=== PATIENT | female | born 1970 | race Caucasian/White ===

== ENCOUNTER 2025-01-22 10:04 | Outpatient (CLI) | payer OTHER, SELFPAY ==
--- NOTE | ~2025-01-22 | MM_ITS ---
EXAMINATION: MM screening skylar BI w renee HISTORY: Screening TECHNIQUE: Craniocaudal and mediolateral oblique 3-D tomosynthesis images were obtained and synthetic 2-D images were generated. CAD analysis was submitted and interpreted. COMPARISON: No prior mammogram is available for comparison at this institution. BREAST PARENCHYMAL COMPOSITION: The breasts are heterogeneously dense, which may obscure small masses. FINDINGS: Focal asymmetry with architectural distortion in the upper inner quadrant of the right breast, middle to posterior depth with a few indeterminant calcifications. Asymmetry in the upper left breast, posterior depth, seen in the left MLO projection. In addition, there is a focal asymmetry in the lower inner quadrant of the left breast, posterior depth. IMPRESSION: 1. Focal asymmetry with architectural distortion in the upper inner quadrant of the right breast, middle to posterior depth with a few indeterminant calcifications. The study is incomplete. A diagnostic mammogram and a diagnostic ultrasound are recommended. 2. Asymmetry in the upper left breast, posterior depth, seen in the left MLO projection. In addition, there is a focal asymmetry in the lower inner quadrant of the left breast, posterior depth. The study is incomplete. A diagnostic mammogram and a diagnostic ultrasound are recommended. BI-RADS 0: Incomplete-Need additional imaging evaluation. Reviewed, dictated and finalized at location Q. IMPRESSION: 1. Focal asymmetry with architectural distortion in the upper inner quadrant of the right breast, middle to posterior depth with a few indeterminant calcifica tions. The study is incomplete. A diagnostic mammogram and a diagnostic ultraso und are recommended. 2. Asymmetry in the upper left breast, posterior depth, seen in the left MLO pr ojection. In addition, there is a focal asymmetry in the lower inner quadrant o f the left breast, posterior depth. The study is incomplete. A diagnostic mammo gram and a diagnostic ultrasound are recommended. BI-RADS 0: Incomplete-Need additional imaging evaluation.
== END 2025-01-22 10:05 | disposition home or self-care (01) ==
LOC: ANHFOHIMG 10:08
PROVIDERS: PCP Nurse Practitioner Family; Visit Provider Nurse Practitioner Family
DX: Z12.31 Encounter for screening mammogram for malignant neoplasm of breast (principal); R92.8 Other abnormal and inconclusive findings on diagnostic imaging of breast
CPT/HCPCS: 77063; 77067

== ENCOUNTER 2025-04-07 02:32 | Day surgery (SDC) | payer OTHER, SELFPAY ==
[2025-04-06 09:43] VITALS: BMI 25.4
--- NOTE | 2025-04-06 10:26 | PC.NURSE ---
[facility] has started construction of its new state of the art ER which will open Spring 2026. With this, we anticipate parking may be a challenge for some our surgical patients and families. Parking spaces are limited but are available for all Surgical, obstetrics, and ER patients sharing this lot. If you arrive and find you are having a hard time finding a parking space, please note that we understand the challenges, please drive around the hospital and park near Hospital Entrance 1. When you enter this entrance, you can ask a volunteer to direct or take you back to the surgical waiting area to check in. We appreciate everyone?s understanding of these expected challenges while we build for your future. Report to the Outpatient Waiting Room, entrance under the green pavilion located off [address], at time __10:30AM____ on date ___04/07/25____. Planned Procedure Time: ____12:30PM____.? Time changes happen often and if your time is changed the preop area will call you the afternoon before. - You and your visitor will be asked to self-screen and do not enter if you have any COVID symptoms. Please call surgeon if you need to reschedule. - A mask is optional within the hospital at this time. Patients may have clear liquids (water, carbonated beverages, clear teas, apple juice) until 3 hours prior to surgery (9:30AM) with a maximum of 20 ounces. - No food from midnight until time of surgery and no smoking, or chewing tobacco (or any form of nicotine). No chewing gum, candy or mints. Take only the following medications with a SIP of water on the morning of surgery: NONE DO NOT STOP ANY OF YOUR OTHER PRESCRIPTION MEDICATIONS PRIOR TO SURGERY EXCEPT THE FOLLOWING Hold all vitamins and supplements for 3 days per anesthesiologist--.STARTING NOW. Please no make-up, nail yakut, hairspray, perfume, deodorant, or body powder the day of surgery.? No jewelry (including any body piercings) or valuables the day of surgery, leave them at home.? Please take a shower or bath the night before, or the morning of, surgery with an antibacterial soap.? Wear comfortable, loose fitting clothing.? Children are encouraged to wear pajamas. - Jewelry must be removed prior to entering the operating room.? Rings and piercings that are not removed may be cut off. - The hospital will not accept responsibility for valuables.? - Please leave all valuables, including medications, at home the day of surgery. If you are going home after surgery, a licensed freight delivery driver must drive you home.? - NO public transportation without another adult if you receive anesthesia. - We recommend that an adult stay with you for 24 hours following discharge. - We also recommend that you do not drive, make important decision, drink alcoholic beverages, or take any drugs that were not prescribed by your health care provider for at least 24 hours after your discharge time. For Pediatric surgeries, we recommend two adults accompany the child home. Follow any additional instructions given to you from your surgeon. Telephone instructions given to PATIENT and asked if any additional questions and then verbalized understanding. Patient advised to call surgeon office or pre surgery nurse liaison [phone] if any additional questions.
--- OUTSIDE RECORDS SUMMARY | 2025-04-07 02:41 | XMS_ITS | Clinical Summary ---
Author Organization [facility] Address [address] [place] [address] Care Team Providers Care Scheduling Analyst Name Role Phone Delfino De Anda MD Primary Care Provider [phone] Allergies No known active allergies Medications No known medications Immunizations Immunization Administration Dates Next Due Influenza (Generic) 02/16/2014,04/07/2013,2011 Influenza Adult (Generic) 04/03/2022 Tdap (Boostrix) 08/17/2023 Social History Tobacco Use Types Packs/Day Years Used Date Smoking Tobacco: Former Cigarettes Smokeless Tobacco: Never Tobacco Cessation:Counseling Given: Yes Alcohol Use Standard Drinks/Week Comments Yes 0 (1 standard drink = 0.6 oz pur e alcohol) socially PHQ-2 Answer Date Recorded Patient Health Questionnaire-2 Score 0 02/01/2024 Comments No Sex and Gender Information Value Date Recorded Sex Assigned at Not on file Legal Sex Female 12:13 PM [employer] Gender Identity Not on file Sexual Orientation Not on file Last Filed Vital Signs Vital Sign Reading Time Taken Comments Blood Pressure 114/81 02/01/2024 9:19 AM CDT Pulse 101 02/01/2024 9:19 AM CDT Temperature 37.7 C (99.8 F) 02/01/2024 9:19 AM CDT Respiratory Rate 16 02/01/2024 9:19 AM CDT Oxygen Saturation 97% 02/01/2024 9:19 AM CDT Inhaled Oxygen Concentration - - Weight 64.4 kg (142 lb) 02/01/2024 9:19 AM CDT Height 154.9 cm (5' 1) 02/01/2024 9:19 AM CDT Body Mass Index 26.83 02/01/2024 9:19 AM CDT Plan of Treatment Health Maintenance Due Date Last Done Comments Cervical Cancer Screening Pap Smear (Age 30 to 64) Every 3 Years 1970 Colorectal Cancer Screening Colonoscopy (10 Years) 1970 Annual Physical 08/18/1974 Hepatitis C 08/18/1989 Hepatitis B Vaccines (1 of 3 - 19+ 3-dose series) 08/18/1990 Cervical Cancer Screening Pap with HPV Testing (Age 30 to 64) Every 5 Years 08/18/2001 Cervical Cancer Screening with HPV 08/18/2001 Mammogram Screening 12/07/2018 12/07/2016, 12/02/2015, 12/02/2015, Additional history exists Pneumococcal Vaccine: 50+ Years (1 of 1 - PCV) 08/18/2021 Zoster Vaccines (1 of 2) 08/18/2021 PHQ-2 (Physician [place]) 04/30/2024 02/01/2024 COVID-19 Vaccine ( - season) 2024 12/09/2020, 11/18/2020 Influenza Adult (#1) 2025 04/03/2022, 02/16/2014, 04/07/2013, Additional history exists DTaP, Tdap and Td Vaccines (2 - Td or Tdap) 08/16/2033 08/17/2023 Hepatitis A Vaccines Aged Out No long er eligible based on patient's age to complete this topic Meningococcal B Vaccine Aged Out No l onger eligible based on patient's age to complete this topic Meningococcal Vaccine Aged Out No julia jonny eligible based on patient's age to complete this topic RSV Immunizations Under 20 Months Aged Out No longer eligible based on patient's age to complete this topic Care Teams Scheduling Analyst Relationship Specialty Start Date End Date Delfino De Anda MD [address] [place] [id number] PCP - General FAMILY PRACTICE 08/17/23
[2025-04-07 10:15] VITALS: BP 130/90; PULSE 66; TEMP 36.2; O2SAT 100; BMI 25.0
[2025-04-07] MEDS: LACTATED RINGERS 1,000 ML 30 ML IV CONT (11:10)
[2025-04-07] MEDS: ACETAMINOPHEN 500 MG TABLET 1000 MG PO (11:14)
[2025-04-07 11:19] LABS: BEDSIDEPREGUCG Negative (Negative)
--- NOTE | 2025-04-07 11:51 | WPDANESEPPF ---
Anes - Initial Pre Proc Eval Procedure: Operation Date: 04/07/25 12:30 Proposed Procedures p Loop Electrical Excision Procedure - Asif Pagan MD Date/Time: 04/07/25 11:51 Surgeon: Asif Pagan MD Pre Op Diagnosis: cin3 Patient Data Age: 54 Gender: F Height: 1.57 m Weight: 62.2 kg Last Vital Signs Temp 36.2 C L 04/07/25 10:15 Pulse 66 04/07/25 10:15 BP 130/90 04/07/25 10:15 Pulse Ox 100 04/07/25 10:15 O2 Del Method Room Air 04/07/25 10:15 Allergies Allergy/AdvReac Type Severity Reaction Status Date / Time No Known Allergies Allergy Unknown Verified 04/07/25 10:48 Home Medications ?Medication ?Instructions ?Recorded ?Confirmed ?Type multivitamin 1 tablet PO DAILY 03/07/23 04/06/25 History acetaminophen 500 mg tablet 500 mg PO Q6H PRN pain 04/06/25 04/06/25 History ibuprofen 200 mg tablet 200 mg PO Q6H PRN pain 04/06/25 04/06/25 History Laboratory Tests 04/07/25 10:15 POC Urine HCG, Qual Negative (Negative) Patient hx anesthesia problems: none Family hx anesthesia problems: none Results Review: All pre-operative results and documents have been reviewed as part of the pre-operative evaluation. [facility] Past Medical History Medical History Miscarriage D&C Breast cancer size of pencil eraser removed Surgical History Surgical History History of lumpectomy Hollister teeth removed Family History Family History Mother Patient's mother is in good health Family history of allergic disorder COPD (chronic obstructive pulmonary disease) Hypertension Thyroid disorder Father Patient's father is in good health Sibling Patient's brother is in good health Family history of allergic disorder Family history of kidney stones Social History Social History Smoking status: Never smoker Alcohol intake: current Drinks per week: 2 Substance use: never Substance use type: does not use Living arrangements: alone Occupation/Education: occupation Gender identity (if verbalized by the patient): Female Agree to blood products: Yes Anes - Eval Final PreProcedure Day of Procedure 04/07/25 11:51 Patient weight: overweight Heart: regular rate and rhythm Lungs: clear to auscultation Airway: Mallampati scale class II Neurological: alert and oriented Last oral intake: >/= 8 hours ASA classification: II Emergent: no Anesthetic plan: proceed Anesthesia type and monitoring: general GIVS and standard monitoring Results Review: All pre-operative results and documents have been reviewed as part of the pre-operative evaluation. Informed Consent: The patient's anesthetic plan and its attendant risks and benefits were discussed with the patient/family/POA. Questions were solicited and answers provided to the satisfaction of the patient/family/POA.
--- NOTE | 2025-04-07 12:40 | PM.IMHP2 ---
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 Colposcopy showed high grade cervical dysplasia. Review of Systems Review of Systems: All systems reviewed & are unremarkable except as noted in HPI and below PMFSH Past Medical History Medical History Miscarriage D&C Breast cancer size of pencil eraser removed Surgical History Surgical History History of lumpectomy Dutton teeth removed Family History Family History Mother Patient's mother is in good health Family history of allergic disorder COPD (chronic obstructive pulmonary disease) Hypertension Thyroid disorder Father Patient's father is in good health Sibling Patient's brother is in good health Family history of allergic disorder Family history of kidney stones Social History Social History Smoking status: Never smoker Alcohol intake: current Drinks per week: 2 Substance use: never Substance use type: does not use Living arrangements: alone Occupation/Education: occupation Gender identity (if verbalized by the patient): Female Agree to blood products: Yes Meds Home Medications and Allergies Home Medications ?Medication ?Instructions ?Recorded ?Confirmed ?Type multivitamin 1 tablet PO DAILY 03/07/23 04/06/25 History acetaminophen 500 mg tablet 500 mg PO Q6H PRN pain 04/06/25 04/06/25 History ibuprofen 200 mg tablet 200 mg PO Q6H PRN pain 04/06/25 04/06/25 History Allergies Allergy/AdvReac Type Severity Reaction Status Date / Time No Known Allergies Allergy Unknown Verified 04/07/25 10:48 Vital Signs Vital Signs - 24 hr 04/07/25 10:15 Temperature 97.2 F L Pulse Rate 66 Blood Pressure 130/90 Pulse Oximetry 100 Oxygen Delivery Room Air Exam Const: Orientation/consciousness: patient oriented x3 Other: Well-developed, well-nourished female in no acute distress. Neck: Thyroid: thyroid normal Lymphatic: no lymphadenopathy noted (in neck, axilla or inguinal nodes) Resp: Effort & Inspection: normal respiratory effort Auscultation: clear to auscultation bilaterally Cardio: Rate: regular rate Rhythm: regular rhythm Heart sounds: S1 normal heart sound present and S2 normal heart sound present GI: Other: ABD: Soft, nontender, nondistended. No guarding or rebound tenderness. No hepatosplenomegaly. : General: Yes no CVA tenderness Other: External genitalia: normal female hair distribution, without lesion. Urethral meatus: no lesion, non prolapsed. Bladder: no mass, nontender Vagina: well-estrogenized, without lesion or discharge. No cystocele or rectocele. Cervix: no lesion or discharge. Uterus: small, anteverted, freely mobile, nontender Adnexa: no mass or tenderness. Anus/perineum: no lesions, nontender Back/Spine/Pelvis: Back: no CVA tenderness Skin: General skin exam: normal color and no rashes or lesions noted Neuro: General: patient oriented x3 Extrem: Other: Extremities: nontender with no edema Psych: Mental Status: mental status grossly normal Affect: normal affect Assessment and Plan Assessment and plan (1) Severe cervical dysplasia, histologically confirmed: Code(s): D06.9 - Carcinoma in situ of cervix, unspecified Status: Acute Assessment and Plan: A: Severe cervical dysplasia. P: I have recommended LEEP conization of the cervix. She understands risks of surgery to include risks of anesthesia, risks of pain, infection, bleeding, blood products, thromboembolic phenomena and damage to adjacent structures such as bowel, bladder, ureters, blood vessels and nerves. She understands all these risks and elects to proceed with surgery.
--- NOTE | 2025-04-07 12:42 | WPDHPUPDATE1 ---
History and Physical Update Update Date/Time: 04/07/25 12:42 History and Physical has been reviewed, including an updated exam of the patient. There are NO changes in the patient's condition. Risks, benefits, and alternatives have been discussed and questions answered. Patient agrees to proceed with procedure.
[2025-04-07] MEDS: LIDOCAINE 1% LOCAL INJ 10 ML VIAL INFILTRATE (13:13)
--- NOTE | 2025-04-07 13:17 | S_PTH ---
PATIENT: Xuan Rodarte LOC: [facility] U#:[id number] AGE/SX: 54/F ROOM: RE04/07/[address]: Asif Pagan MD : 1970 BED: DIS: 04/07/2025 SPEC #: [id number] RECD: 04/07/25 14:29 STATUS: KOKO REQ #: [id number] GREG: 04/07/25 13:[address]: Asif Pagan DEPT: [facility] Surgical RECD BY: Sonia Cortes MLT, (ASCP) ENTERED: 04/07/25 14:30 SP TYPE: Surgical OTHR DR: Shannon Osborne APRN Tissues: A - Leep/Cone B - Leep/Cone C - Leep/Cone Procedures: Hematoxylin and Eosin Stain Gross and Microscopic Level 5 P16
[2025-04-07] MEDS: KETOROLAC 15 MG/ML VIAL (*BKC) IV PUSH (13:22)
[2025-04-07 13:29] VITALS: BP 86/48; PULSE 77; RESP 14; O2SAT 97
--- NOTE | 2025-04-07 13:29 | P.OP_ITS ---
Procedure Note - Detailed Date of Procedure 04/07/25 Pre-op Diagnosis Severe dysplasia of the cervix Post-op Diagnosis Same Procedure Performed LEEP conization of the cervix Surgeon Asif Pagan MD Anesthesia MAC and Local (1% lidocaine) Findings Acetowhite epithelium noted on anterior and posterior lip of the cervix. Description of Procedure The patient was taken to the operating room where she was prepared and draped in the usual sterile fashion in the dorsal lithotomy position. The bladder was drained with a red rubber catheter. A sterile, insulated speculum was placed into the vagina. Ten mL of 1% lidocaine was administered in a paracervical blo ck. Acetic acid was applied to the cervix. LEEP conization was then performed, first biopsying the posterior lip of the cervix, then the anterior lip, then the top of the hat. The rollerball was used to achieve excellent hemostasis. Monsel's solution was then applied to the biopsy bed. Hemostasis was excellent. Sponge, lap, needle and instrument counts were correct. The patient was awakened and taken to the recovery room in stable condition. I was present and scrubbed through the entire procedure. Implants None Estimated Blood Loss 10 Drains No Packing No Pathology Yes (Anterior lip of cervix, posterior lip of cervix, top of the hat) Complications None Condition Stable Disposition PACU [facility] Billing Surgery - Charge Forward: Surgery Billing
[2025-04-07 14:00] VITALS: BP 142/88; PULSE 62; RESP 20
[2025-04-07 14:30] VITALS: BP 128/75; PULSE 78; RESP 20
== END 2025-04-07 14:41 | disposition home or self-care (01) ==
PROVIDERS: Anesthesiology; PCP Nurse Practitioner Family; Visit Provider Obstetrics & Gynecology
PROC: 0UBC7ZZ Excision of Cervix, Via Natural or Artificial Opening (ICD-10-PCS; CPT 57522; principal; 2025-04-07 12:30)
DX: D06.0 Carcinoma in situ of endocervix (principal); Z79.1 Long term (current) use of non-steroidal anti-inflammatories (NSAID); Z98.890 Other specified postprocedural states; Z85.3 Personal history of malignant neoplasm of breast
CPT/HCPCS: 57522; 88305; 88307; 88342; A9270; J1885; J2003; J2250; J2704; J3010; J7120

== ENCOUNTER 2025-04-13 12:58 | Outpatient (CLI) | payer OTHER, SELFPAY ==
--- NOTE | ~2025-04-13 | MMUS_ITS ---
EXAMINATION: MM diagnostic skylar BI w renee, US breast BI limited INDICATION: 54-year old female; BI-RADS 0, callback to evaluate bilateral breast asymmetries. Patient does not remember the location of a prior mammograms. Prior biopsy right breast which was reported to the patient as benign. COMPARISON: 01/22/2025 TECHNIQUE: Digital breast tomosynthesis True lateral and spot compression of BILATERAL breast were obtained. FINDINGS: The breasts are heterogeneously dense, which may obscure small masses. The asymmetry of concern in the superior medial right breast at posterior depth persists on spot compression views and contains a few calcifications. In addition there is a biopsy clip noted adjacent to this area. The asymmetry of concern seen in the superior left breast at posterior depth effaces on spot compression views compatible with superimposition of fibroglandular tissue. The focal asymmetry seen in the inferior medial left breast at posterior depth persisted as a circumscribed mass. Bilateral breast ultrasound was performed for further evaluation. BILATERAL BREAST ULTRASOUND FINDINGS: Right breast: Targeted evaluation of the area of concern in the superior medial right breast revealed an hypoechoic area at 1:00, 4 cm FN with posterior acoustic shadowing. An echogenic area seen in the superior aspect most likely represent the metallic clip placed at previous biopsy. Most likely this finding represent an area of fat necrosis. It is best considered as a probably benign finding especially since there is no prior for comparison. Left breast: Targeted evaluation of the inferior medial location was completed. No suspicious solid or cystic masses seen. IMPRESSION: 1. Probably benign right breast finding, most likely an area of fat necrosis. Short-term follow-up is advised. 2. Probably benign left breast finding in the inferior medial location, short- term follow-up is advised. 3. Asymmetry in the upper left breast represents superimposition of fibroglandular tissue. No further investigation necessary. RECOMMENDATION: 6 month follow-up bilateral diagnostic mammography and right breast ultrasound. BI-RADS 3, PROBABLY BENIGN Reviewed, dictated and finalized at location A. [employer] IMPRESSION: 1. Probably benign right breast finding, most likely an area of fat necrosis. Short-term follow-up is advised. 2. Probably benign left breast finding in the inferior medial location, short- term follow-up is advised. 3. Asymmetry in the upper left breast represents superimposition of fibrogland ular tissue. No further investigation necessary. RECOMMENDATION: 6 month follow-up bilateral diagnostic mammography and right breast ultrasound. BI-RADS 3, PROBABLY BENIGN
== END 2025-04-13 12:59 | disposition home or self-care (01) ==
LOC: ANHFOHIMG 13:00
PROVIDERS: PCP Nurse Practitioner Family; Visit Provider Nurse Practitioner Family
DX: R92.1 Mammographic calcification found on diagnostic imaging of breast (principal); R92.8 Other abnormal and inconclusive findings on diagnostic imaging of breast
CPT/HCPCS: 76642; 77062; 77066; G0279